=== PATIENT | male | born 1975 | race Caucasian/White ===

== ENCOUNTER 2024-07-01 03:12 | Emergency (ER) | payer MEDICAID ==
[~2024-07-01] VITALS: Ht 175.3 cm; Wt 63.5 kg
[2024-07-01] MEDS ORDERED: SULF1TAB48 PO (03:31)
[2024-07-01] MEDS ORDERED: CEPH500T PO (03:31)
[2024-07-01] MEDS ORDERED: SULFAMETH/TRIMETH 800/160 MG TABLET ONE (03:33)
[2024-07-01] MEDS ORDERED: CEFTRIAXONE 1 G VIAL ONE (03:33)
[2024-07-01] MEDS ORDERED: TDAP DIPH,PERTUSS,TET VAC/PF 0.5 ML DISP.SYRIN IM ONE (03:34)
[2024-07-01] MEDS ORDERED: LIDOCAINE HCL 1% 20 ML VIAL ONE (03:37)
[2024-07-01] MEDS: SULFAMETH/TRIMETH 800/160 MG TABLET PO ONE (03:48)
[2024-07-01] MEDS: CEFTRIAXONE 1 G VIAL IM ONE (03:48)
[2024-07-01] MEDS: TDAP DIPH,PERTUSS,TET VAC/PF 0.5 ML DISP.SYRIN IM ONE (03:51)
[2024-07-01 03:53] VITALS: BP 114/64; TEMP 96.7; O2SAT 99
== END 2024-07-01 03:53 | disposition home or self-care (01) ==
LOC: ER 03:19
DX: L03.113 Cellulitis of right upper limb (principal); F17.210 Nicotine dependence, cigarettes, uncomplicated; Z79.899 Other long term (current) drug therapy
CPT/HCPCS: 99284; 99406; 90715; 96372; 90471; J0696; J3490; A4606; A4663

== ENCOUNTER 2024-12-28 14:28 | Emergency (ER) | payer MEDICAID ==
[~2024-12-28] VITALS: Ht 175.3 cm; Wt 63.5 kg
[~2024-12-28 14:28] MED LIST: CEPH500T PO; SULF1TAB48 PO
[2024-12-28] MEDS ORDERED: CLINDAMYCIN HCL 300 MG CAPSULE ONE (15:06)
[2024-12-28] MEDS: CLINDAMYCIN HCL 150 MG CAPSULE PO ONE (15:06)
[2024-12-28] MEDS ORDERED: CLIN300C12 PO (15:15)
[2024-12-28] MEDS ORDERED: ACET1TAB23 PO (15:15)
[2024-12-28 15:26] VITALS: BP 110/60; O2SAT 98
== END 2024-12-28 15:26 | disposition home or self-care (01) ==
LOC: ER 14:28
DX: M27.2 Inflammatory conditions of jaws (principal); F17.210 Nicotine dependence, cigarettes, uncomplicated
CPT/HCPCS: A4606; A4663